=== PATIENT | female | born 1975 | race African-American/Black ===

== ENCOUNTER 2017-02-08 08:35 | Emergency (ER) | payer MEDICAID ==
[2017-02-08] MEDS ORDERED: methylPREDNISolone Sodium Succinate 125 MG/2 ML SDV IM ONE (08:48)
[2017-02-08] MEDS ORDERED: Ketorolac 60 MG/2 ML SDV IM ONE (08:49)
[2017-02-08 08:56] VITALS: BP 148/88
[2017-02-08 09:41] LABS: CHLORIDE,CL 104 mmol/L (98-107); SODIUM,NA 141 mmol/L (136-145)
[2017-02-08] MEDS ORDERED: Iopamidol 612 MG/ML 100 ML Bottle IVPUSH ONE (10:25)
[2017-02-08] MEDS ORDERED: Sodium Chloride 0.9% 100 ML IV ONE (10:25)
--- NOTE | 2017-02-26 07:55 | ER ---
Date of Service: 02/08/2017 SUBJECTIVE: Christine presents to the emergency room with complaints of chest congestion that she has been experiencing for 1 month. The patient states that she has not been experiencing any fever or chills. She denies any recent travel. She states that she is not currently on control. She has not been experiencing any fever or chills. No abdominal pain. No nausea, vomiting, or diarrhea. PAST MEDICAL HISTORY: 1. Hypertension. 2. Tobacco abuse disorder. MEDICATIONS: 1. Hydrochlorothiazide. 2. Haldol. 3. Prozac. ALLERGIES: NKDA. She is allergic to latex, however. REVIEW OF SYSTEMS: General: No fever or chills. HEENT: No sore throat, rhinorrhea, congestion. Respiratory: Positive for mild shortness of breath and chest tightness. Cardiac: Denies any substernal chest pain. No jaw, arm, neck, or back pain. GI: No nausea, vomiting, or diarrhea. No melena, hematochezia, or hematemesis. : Denies any dysuria. PHYSICAL EXAMINATION: General: This is a 41-year-old female patient, in no acute distress. Vital Signs: Blood pressure is 148/88, pulse rate 84, temperature is 35.9, respiratory rate 22, and O2 saturations 99%. Skin: Warm, pink, and dry. HEENT. Head is normocephalic, atraumatic. Eyes, PERRLA. Extraocular movements are intact. Mouth, oral mucosa is moist. No erythema or exudate noted in the hypopharynx. Neck: Supple, without masses. There is no lymphadenopathy. Lungs: Diminished with wheezing. Heart: Regular rate and rhythm. Normal S1, S2. No S3, S4, clicks, or rubs. Abdomen: Soft, nontender. There is no hepatosplenomegaly or masses noted. Extremities: Without edema. LABORATORY DATA: WBCs 3.4, hemoglobin is 11.4, and platelets are 185. PT is 9.9 and INR is 0.9. D-dimer is positive at 0.93. Comprehensive metabolic panel was obtained with the exception of an elevated AST at 87 and ALT at 94 was within normal limits. Troponin is less than 0.017. C-reactive protein is 1.1. Albumin 3.4. PA and lateral chest x-ray was obtained. She did have evidence of some hyperinflation, but no obvious infiltrate. CT angiogram of the patient's chest was obtained. There was no evidence of any pulmonary embolism. ASSESSMENT: Chronic obstructive pulmonary disease exacerbation. PLAN: She has not been diagnosed with COPD, but she has been a heavy smoker for many years. The patient was started on doxycycline 100 mg twice daily for 10 days, was also started on prednisone 40 mg daily for 6 days. I would like her to follow up in the clinic in the next 7 to 10 days sooner if she develops any worsening dyspnea. All questions were answered. MWK: 02/25/2017 22:05:05 MODL: 02/26/2017 01:29:43 /[id number]
== END 2017-02-08 11:49 | disposition home or self-care (01) ==
LOC: VM.ED 08:35
DX: J44.1 Chronic obstructive pulmonary disease with (acute) exacerbation (principal); I10 Essential (primary) hypertension; R79.89 Other specified abnormal findings of blood chemistry; Z72.0 Tobacco use; Z79.899 Other long term (current) drug therapy; Z91.040 Latex allergy status
CPT/HCPCS: 36415; 71020; 71275; 80053; 84484; 85025; 85379; 85610; 86140; 87804; 93005; 96372; 99285; J1885; J2930; J7050; Q9967

== ENCOUNTER 2017-03-26 22:10 | Emergency (ER) | payer MEDICAID ==
[2017-03-26 22:25] VITALS: BP 138/81
[2017-03-26] MEDS ORDERED: Albuterol/Ipratropium 3.0-0.5 MG/3 ML Neb Soln NEB ONE (22:41)
[2017-03-26] MEDS ORDERED: LORazepam 1 MG Tab PO ONE (22:41)
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
== END 2017-03-27 00:04 | disposition home or self-care (01) ==
LOC: VM.ED 22:10
DX: R07.89 Other chest pain (principal); F41.9 Anxiety disorder, unspecified; J44.9 Chronic obstructive pulmonary disease, unspecified; Z91.040 Latex allergy status; I10 Essential (primary) hypertension; F32.9 Major depressive disorder, single episode, unspecified; F17.210 Nicotine dependence, cigarettes, uncomplicated
CPT/HCPCS: 36415; 82550; 82553; 83880; 84484; 85610; 93005; 94640; 99285; A9270

== ENCOUNTER 2018-03-21 08:32 | Emergency (ER) | payer MEDICAID ==
[2018-03-21 08:47] VITALS: BP 153/97
[2018-03-21 09:42] LABS: CHLORIDE,CL 97 mmol/L (98-107); SODIUM,NA 136 mmol/L (136-145)
--- NOTE | 2018-03-21 16:53 | EDM.PDOC ---
ED HPI GENERAL MEDICAL PROBLEM - General Chief Complaint: General Stated Complaint: CHEST TIGHTNESS Time Seen by Provider: 03/21/18 08:56 Source of Information: Reports: Patient History Limitations: Reports: No Limitations - History of Present Illness INITIAL COMMENTS - FREE TEXT/NARRATIVE: Pt. presents to ER with complaints of cough, chest tightness, and cough, productive of brownish colored sputum. States that she has been experiencing these symptoms for weeks. She was seen in the clinic for this but was not started on any medications, as she still smokes cigarettes. She states that she has not been experiencing any fever or chills. No lightheadedness. No shortness of breath. Pt. also complains of vaginal discomfort and malodorous discharge since having unprotected sex several weeks ago. She states that she has had some blood- tinged vaginal discharge as well. She states that it is uncomfortable when she urinates. Location: Reports: Chest, Pelvis Quality: Reports: Burning chest and back Pain Score (Numeric/FACES): 10 - Related Data Allergies Allergy/AdvReac Type Severity Reaction Status Date / Time Latex, Natural Rubber Allergy Unknown Swelling Verified 03/21/18 08:48 No Known Drug Allergies Allergy Other Verified 03/21/18 08:48 Home Meds: Home Meds Verapamil HCl 360 mg PO DAILY 03/26/17 [History] Albuterol [Proventil HFA] 2 puff INH Q4H PRN 03/21/18 [History] Hydrochlorothiazide 25 mg PO DAILY 03/21/18 [History] Past Medical History - Past Health History Medical/Surgical History: Denies Medical/Surgical History Cardiovascular History: Reports: Hypertension Respiratory History: Reports: COPD Psychiatric History: Reports: Depression Social & Family History - Tobacco Use Smoking Status *Q: Current Every Day Smoker Years of Tobacco use: 25 Packs/Tins Daily: 2 Second Hand Smoke Exposure: Yes - Alcohol Use Days Per Week of Alcohol Use: 7 Number of Drinks Per Day: 2 Total Drinks Per Week: 14 - Recreational Drug Use Recreational Drug Use: Yes Drug Use in Last 12 Months: No Recreational Drug Type: Reports: Marijuana/Hashish - Living Situation & Occupation Living situation: Reports: with Significant Other, with Family ED ROS GENERAL - Review of Systems Review Of Systems: See Below Constitutional: Reports: No Symptoms HEENT: Reports: No Symptoms Respiratory: Reports: Shortness of Breath, Cough, Sputum Cardiovascular: Reports: No Symptoms Endocrine: Reports: No Symptoms GI/Abdominal: Reports: No Symptoms : Reports: No Symptoms Musculoskeletal: Reports: No Symptoms Skin: Reports: No Symptoms Neurological: Reports: No Symptoms Psychiatric: Reports: No Symptoms Hematologic/Lymphatic: Reports: No Symptoms Immunologic: Reports: No Symptoms ED EXAM, GENERAL - Physical Exam Exam: See Below Exam Limited By: No Limitations General Appearance: Alert, WD/WN, No Apparent Distress Ears: Normal External Exam, Normal Canal, Hearing Grossly Normal, Normal TMs Ear Exam: Bilateral Ear: Auricle Normal, Canal Normal, TM normal Nose: Normal Inspection, Normal Mucosa, No Blood Throat/Mouth: Normal Inspection, Normal Lips, Normal Teeth, Normal Gums, Normal Oropharynx, Normal Voice, No Airway Compromise Head: Atraumatic, Normocephalic Neck: Normal Inspection, Supple, Non-Tender, Full Range of Motion Respiratory/Chest: No Respiratory Distress, Lungs Clear, Normal Breath Sounds, Respiratory Distress, Crackles Cardiovascular: Normal Peripheral Pulses, Regular Rate, Rhythm, No Edema, No Gallop, No JVD, No Murmur, No Rub Peripheral Pulses: 4+: Radial (L), Radial (R) GI/Abdominal: Normal Bowel Sounds, Soft, Non-Tender, No Organomegaly, No Distention, No Abnormal Bruit, No Mass (Female) Exam: Normal External Exam, Vaginal Bleeding, Vaginal Discharge Rectal (Female) Exam: Normal Exam, Normal Rectal Tone Back Exam: Normal Inspection, Full Range of Motion, NT Extremities: Normal Inspection, Normal Range of Motion, Non-Tender, Normal Capillary Refill, No Pedal Edema Neurological: Alert, Oriented, CN II-XII Intact, Normal Cognition, Normal Gait, Normal Reflexes, No Motor/Sensory Deficits Psychiatric: Normal Affect, Normal Mood Skin Exam: Warm, Dry, Intact, Normal Color, No Rash Lymphatic: No Adenopathy Course - Vital Signs Last Recorded V/S: Last Vital Signs Temp 37.1 C 03/21/18 08:41 Pulse 90 03/21/18 08:41 Resp 18 03/21/18 08:41 BP 153/97 H 03/21/18 08:41 Pulse Ox 96 03/21/18 08:41 - Orders/Labs/Meds Orders: Active Orders 24 hr Category Date Time Status Chest 2V [CR] Stat Exams 04/26/18 09:02 Taken CHLAMYDIA/GC NUCLEIC ACID AMP [MREF] Stat Lab 03/21/18 09:02 Ordered CULTURE GENITAL [RM] Stat Lab 03/21/18 09:15 Received HEPATITIS B SURFACE ANTIGEN [REF] Stat Lab 03/21/18 09:15 Received HEPATITIS C AB [REF] Stat Lab 03/21/18 09:15 Received HIV 1,2 AB/AG COMBO SCREEN [REF] Stat Lab 03/21/18 09:15 Received RPR [REF] Stat Lab 03/21/18 09:15 Received Labs: Laboratory Tests 03/21/18 03/21/18 03/21/18 Range/Units 09:15 09:15 09:15 WBC 3.7 L (4.0-10.0) x10^3/uL RBC 4.16 (4.00-5.50) x10^6/uL Hgb 14.0 D (12.0-16.0) g/dL Hct 39.1 (33.0-47.0) % MCV 94.0 H (78.0-93.0) fL MCH 33.7 H (26.0-32.0) pg MCHC 35.8 (32.0-36.0) g/dL RDW Coeff of Alda 14.4 (10.0-15.0) % Plt Count 269 D (130-400) x10^3/uL Neut % (Auto) 28.1 L (50.0-80.0) % Lymph % (Auto) 59.4 H (25.0-50.0) % Anderson % (Auto) 11.7 H (2.0-11.0) % Eos % (Auto) 0.3 (0.0-4.0) % Baso % (Auto) 0.5 (0.2-1.2) % PT 10.4 (9.8-11.8) SEC INR 1.0 L (2.0-3.5) Sodium 136 (136-145) mmol/L Potassium 3.5 (3.5-5.1) mmol/L Chloride 97 L (98-107) mmol/L Carbon Dioxide 27 (21-32) mmol/L Anion Gap 15.5 (10-20) mmol/L BUN 16 (7-18) mg/dL Creatinine 0.8 (0.55-1.02) mg/dL Est Cr Clr Drug Dosing TNP Estimated GFR (MDRD) > 60 Glucose 85 (74-106) mg/dL Calcium 8.8 (8.5-10.1) mg/dL Corrected Calcium 9.28 (8.5-10.1) mg/dL Total Bilirubin 0.6 (0.2-1.0) mg/dL AST 57 H (15-37) U/L ALT 60 H (14-59) U/L Alkaline Phosphatase 60 (46-116) U/L C-Reactive Protein < 0.2 (<=0.9) mg/dL Total Protein 7.5 (6.4-8.2) g/dL Albumin 3.4 (3.4-5.0) g/dL Globulin 4.1 Albumin/Globulin Ratio 0.83 Departure - Departure Time of Disposition: 11:10 Disposition: Home, Self-Care 01 Condition: Good Clinical Impression: COPD exacerbation, Vaginal discharge, bloody - Discharge Information Instructions: Chronic Obstructive Pulmonary Disease Exacerbation, Vaginitis, Aweo-ce-Fxey Referrals: Dc Rosen MD [Primary Care Provider] - Forms: ED Department Discharge Additional Instructions: Flagyl 500mg three times daily Prednisone 40mg once daily Toradol 10mg every 4-6 hours Azithromycin 250mg 2 tablets today, then 1 tablet daily on days 2-5 Follow-up with your primary care provider in 7-10 days for recheck - My Orders Last 24 Hours: My Active Orders 03/21/18 09:02 Chest 2V [CR] Stat CHLAMYDIA/GC NUCLEIC ACID AMP [MREF] Stat 03/21/18 09:15 CULTURE GENITAL [RM] Stat HEPATITIS B SURFACE ANTIGEN [REF] Stat HEPATITIS C AB [REF] Stat HIV 1,2 AB/AG COMBO SCREEN [REF] Stat RPR [REF] Stat - Assessment/Plan Last 24 Hours: My Active Orders 03/21/18 09:02 Chest 2V [CR] Stat CHLAMYDIA/GC NUCLEIC ACID AMP [MREF] Stat 03/21/18 09:15 CULTURE GENITAL [RM] Stat HEPATITIS B SURFACE ANTIGEN [REF] Stat HEPATITIS C AB [REF] Stat HIV 1,2 AB/AG COMBO SCREEN [REF] Stat RPR [REF] Stat Assessment:: COPD exacerbation Bloody vaginal discharge Plan: GC chlamydia, RPR, hepB, hepC and vaginal cultures obtained and are pending. Will start pt. on azithromycin and prednisone. Will also cover for bacterial vaginal infection with flagyl 500mg twice daily.
== END 2018-03-21 11:10 | disposition home or self-care (01) ==
LOC: VM.ED 08:32
DX: J44.1 Chronic obstructive pulmonary disease with (acute) exacerbation (principal); N89.8 Other specified noninflammatory disorders of vagina; I10 Essential (primary) hypertension; F17.210 Nicotine dependence, cigarettes, uncomplicated; Z91.040 Latex allergy status
CPT/HCPCS: 36415; 71046; 80053; 85025; 85610; 86140; 86592; 86703; 86803; 87070; 87077; 87186; 87340; 99284

== ENCOUNTER 2018-08-31 08:39 | Emergency (ER) | payer MEDICAID ==
[2018-08-31 10:01] VITALS: BP 156/107
--- NOTE | 2018-09-01 18:59 | EDM.PDOC ---
ED HPI GENERAL MEDICAL PROBLEM - General Chief Complaint: General Stated Complaint: SWOLLEN MOUTH Time Seen by Provider: 08/31/18 09:05 Source of Information: Reports: Patient History Limitations: Reports: No Limitations - History of Present Illness INITIAL COMMENTS - FREE TEXT/NARRATIVE: Woke up with swelling and erythema to lips. States that she did have some cold sores to her lips before bed. Denies any fever or chills. No nausea, vomiting, or diarrhea. Lip Pain Score (Numeric/FACES): 8 - Related Data Allergies Allergy/AdvReac Type Severity Reaction Status Date / Time Latex, Natural Rubber Allergy Unknown Swelling Verified 08/31/18 09:09 No Known Drug Allergies Allergy Other Verified 08/31/18 09:09 Home Meds: Home Meds Verapamil HCl 360 mg PO DAILY 03/26/17 [History] Albuterol [Proventil HFA] 2 puff INH Q4H PRN 03/21/18 [History] hydroCHLOROthiazide [Hydrochlorothiazide] 25 mg PO DAILY 03/21/18 [History] Past Medical History - Past Health History Medical/Surgical History: Denies Medical/Surgical History Cardiovascular History: Reports: Hypertension Respiratory History: Reports: COPD Psychiatric History: Reports: Anxiety, Depression Social & Family History - Tobacco Use Smoking Status *Q: Current Every Day Smoker Years of Tobacco use: 26 Packs/Tins Daily: 1 - Alcohol Use Days Per Week of Alcohol Use: 1 Number of Drinks Per Day: 1 Total Drinks Per Week: 1 - Recreational Drug Use Recreational Drug Use: No - Living Situation & Occupation Living situation: Reports: with Significant Other, with Family ED ROS GENERAL - Review of Systems Review Of Systems: ROS reveals no pertinent complaints other than HPI. ED EXAM, GENERAL - Physical Exam Exam: See Below Exam Limited By: No Limitations General Appearance: Alert, WD/WN, No Apparent Distress Nose: Normal Inspection, Normal Mucosa, No Blood Throat/Mouth: Other (severe edema noted to both lips. There is areas of open, crusting lesion primarily to upper lip. ) Respiratory/Chest: No Respiratory Distress, Lungs Clear, Normal Breath Sounds, No Accessory Muscle Use, Chest Non-Tender Cardiovascular: Normal Peripheral Pulses, Regular Rate, Rhythm, No Edema, No Gallop, No JVD, No Murmur, No Rub Course - Vital Signs Last Recorded V/S: Last Vital Signs Temp 36.4 C 08/31/18 08:40 Pulse 94 08/31/18 08:40 Resp 16 08/31/18 08:40 BP 156/107 H 08/31/18 08:40 Pulse Ox 99 08/31/18 08:40 Departure - Departure Time of Disposition: 09:40 Disposition: Home, Self-Care 01 Condition: Good Clinical Impression: Cellulitis and abscess of face, History of cold sores - Discharge Information Instructions: Cellulitis, Adult, Cold Sore, Valacyclovir caplets, Doxycycline tablets or capsules Referrals: Dc Rosen MD [Primary Care Provider] - Forms: ED Department Discharge Additional Instructions: Valtrex 1000mg 2 tabs by mouth twice daily for 2 days. Doxycycline 1oomg twice daily for 10 days. Follow-up in clinic if not gradually improving. - Assessment/Plan Plan: Valtrex 1000mg 2 tabs by mouth twice daily for 2 days. Doxycycline 1oomg twice daily for 10 days. Follow-up in clinic if not gradually improving.
== END 2018-08-31 09:40 | disposition home or self-care (01) ==
LOC: VM.ED 08:39
DX: L03.211 Cellulitis of face (principal); F17.210 Nicotine dependence, cigarettes, uncomplicated; I10 Essential (primary) hypertension; J44.9 Chronic obstructive pulmonary disease, unspecified; F41.9 Anxiety disorder, unspecified; F32.9 Major depressive disorder, single episode, unspecified; Z91.040 Latex allergy status; Z79.899 Other long term (current) drug therapy
CPT/HCPCS: 99283

== ENCOUNTER 2019-03-25 12:09 | Emergency (ER) | payer MEDICAID ==
[2019-03-25] MEDS ORDERED: ALPRAZolam 0.25 MG Tab PO ONE (12:44)
[2019-03-25] MEDS ORDERED: Verapamil 240 MG Tab.ER PO ONE (12:45)
[2019-03-25 13:21] LABS: CHLORIDE,CL 95 mmol/L (98-107); SODIUM,NA 136 mmol/L (136-145)
[2019-03-25 13:22] LABS: ANION GAP 15.5 mmol/L (10-20)
--- NOTE | 2019-03-25 13:22 | EDM.PDOC ---
ED HPI GENERAL MEDICAL PROBLEM - General Chief Complaint: General Stated Complaint: "feels funny" Time Seen by Provider: 03/25/19 12:39 Source of Information: Reports: Patient History Limitations: Reports: No Limitations - History of Present Illness INITIAL COMMENTS - FREE TEXT/NARRATIVE: Patient comes in with complaints of feeling "funny". States this happened right after eating lunch. Describes tingling to her hands and feet, some jittery feelings. Does have history of HTN and sees Dr. Joshua Rosen at the [facility]. Remote history anxiety. States she does not have this anymore. She takes verapamil and hctz for blood pressure control. She denies any recent illness, no fever, chills, headache, no prior history of DE or stroke. She has no nausea, vomiting, abdominal pain. No swelling to her feet. Denies any urinary or bowel complaints. No blood in urine or stool. Medical history includes tubal . No abdominal/pelvic surgeries. Onset: Today, Sudden Onset Date: 03/25/19 Duration: Intermittent Location: Reports: Generalized Severity: Moderate Worsens with: Reports: None Associated Symptoms: Reports: Other (numbness/tingling to feet and hands) - Related Data Allergies Allergy/AdvReac Type Severity Reaction Status Date / Time Latex, Natural Rubber Allergy Unknown Swelling Verified 03/25/19 12:33 No Known Drug Allergies Allergy Other Verified 03/25/19 12:33 Home Meds: Home Meds Verapamil HCl 360 mg PO DAILY 03/26/17 [History] Albuterol [Proventil HFA] 2 puff INH Q4H PRN 03/21/18 [History] hydroCHLOROthiazide [Hydrochlorothiazide] 25 mg PO DAILY 03/21/18 [History] Past Medical History - Past Health History Medical/Surgical History: Denies Medical/Surgical History Cardiovascular History: Reports: Hypertension Respiratory History: Reports: COPD Psychiatric History: Reports: Anxiety, Depression Social & Family History - Tobacco Use Smoking Status *Q: Current Status Unknown - Living Situation & Occupation Living situation: Reports: with Significant Other, with Family ED ROS GENERAL - Review of Systems Review Of Systems: See Below Constitutional: Reports: No Symptoms HEENT: Reports: No Symptoms Respiratory: Reports: No Symptoms Cardiovascular: Reports: No Symptoms Endocrine: Reports: No Symptoms GI/Abdominal: Reports: No Symptoms : Reports: No Symptoms Musculoskeletal: Reports: No Symptoms Skin: Reports: No Symptoms Neurological: Reports: Numbness, Tingling (feet and hands) Psychiatric: Reports: Other (denies anxiety) Hematologic/Lymphatic: Reports: No Symptoms Immunologic: Reports: No Symptoms ED EXAM, GENERAL - Physical Exam Exam: See Below Exam Limited By: No Limitations General Appearance: Alert, WD/WN, No Apparent Distress Eye Exam: Bilateral Eye: EOMI, PERRL Ears: Normal TMs Nose: Normal Inspection, Normal Mucosa, No Blood Throat/Mouth: Normal Inspection, Normal Lips, Normal Teeth, Normal Gums, Normal Oropharynx, Normal Voice, No Airway Compromise Head: Atraumatic, Normocephalic Neck: Normal Inspection, Supple, Non-Tender, Full Range of Motion Respiratory/Chest: No Respiratory Distress, Lungs Clear, Normal Breath Sounds, No Accessory Muscle Use, Chest Non-Tender Cardiovascular: Normal Peripheral Pulses, Regular Rate, Rhythm, No Edema, No Gallop, No JVD, No Murmur, No Rub Peripheral Pulses: 2+: Posterior Tibial (L), Posterior Tibial (R), Dorsalis Pedis (L), Dorsalis Pedis (R) GI/Abdominal: Normal Bowel Sounds, Soft, Non-Tender, No Organomegaly, No Distention, No Abnormal Bruit, No Mass Back Exam: Normal Inspection, Full Range of Motion, NT Extremities: Normal Inspection, Normal Range of Motion, Non-Tender, Normal Capillary Refill, No Pedal Edema Neurological: Alert, Oriented, CN II-XII Intact, Normal Cognition, Normal Gait, Normal Reflexes, No Motor/Sensory Deficits Psychiatric: Normal Affect, Normal Mood Skin Exam: Warm, Dry, Intact, Normal Color, No Rash Lymphatic: No Adenopathy Course - Vital Signs Last Recorded V/S: Last Vital Signs Temp 36.5 C 03/25/19 12:12 Pulse 104 H 03/25/19 12:12 Resp 16 03/25/19 12:12 BP 158/95 H 03/25/19 12:12 Pulse Ox 100 03/25/19 12:12 - Orders/Labs/Meds Orders: Active Orders 24 hr Category Date Time Status COMPREHENSIVE METABOLIC PN,CMP [CHEM] Stat Lab 03/25/19 12:41 Ordered INR,PT,PROTHROMBIN TIME [COAG] Stat Lab 03/25/19 12:41 Ordered TROPONIN I [CHEM] Stat Lab 03/25/19 12:41 Ordered Labs: Laboratory Tests 03/25/19 Range/Units 12:50 WBC 5.9 (4.0-10.0) x10^3/uL RBC 3.93 L (4.00-5.50) x10^6/uL Hgb 12.6 (12.0-16.0) g/dL Hct 36.6 (33.0-47.0) % MCV 93.1 H D (78.0-93.0) fL MCH 32.1 H (26.0-32.0) pg MCHC 34.4 (32.0-36.0) g/dL RDW Coeff of Alda 13.4 (10.0-15.0) % Plt Count 315 (130-400) x10^3/uL Neut % (Auto) 32.8 L (50.0-80.0) % Lymph % (Auto) 60.5 H (25.0-50.0) % [place] % (Auto) 6.3 (2.0-11.0) % Eos % (Auto) 0.2 (0.0-4.0) % Baso % (Auto) 0.2 (0.2-1.2) % Meds: Medications Discontinued Medications Generic Name Dose Route Start Last Admin Trade Name Freq PRN Reason Stop Dose Admin Alprazolam 0.25 mg 03/25/19 12:44 Xanax PO 03/25/19 12:45 NOW ONE Verapamil HCl 240 mg 03/25/19 12:45 03/25/19 13:00 Calan Sr PO 03/25/19 12:46 240 mg ONETIME ONE Administration - Radiology Interpretation Free Text/Narrative:: ct head negative for acute process Departure - Departure Time of Disposition: 14:30 Disposition: Home, Self-Care 01 Condition: Good Clinical Impression: Anxiety - Discharge Information *PRESCRIPTION DRUG MONITORING PROGRAM REVIEWED*: Not Applicable *COPY OF PRESCRIPTION DRUG MONITORING REPORT IN PATIENT SRINIVAS: Not Applicable Instructions: Generalized Anxiety Disorder, Adult, Panic Attack, [id number], Preventing Hypertension, Hypertension, [id number] Referrals: Dc Rosen MD [Primary Care Provider] - Additional Instructions: Plan 1. Follow up with your primary doctor as needed as you may need additional medication for your blood pressure 2. Your labs today are all negative for any infectious or cardiac reasons for your symptoms 3. Your symptoms largely resemble those present with anxiety/panic attacks. Some of these can also be present with high blood pressure so it is important to follow up with Dr. Rosen. 4. Please call us if you have any questions or concerns. - My Orders Last 24 Hours: My Active Orders 03/25/19 12:41 COMPREHENSIVE METABOLIC PN,CMP [CHEM] Stat INR,PT,PROTHROMBIN TIME [COAG] Stat TROPONIN I [CHEM] Stat - Assessment/Plan Last 24 Hours: My Active Orders 03/25/19 12:41 COMPREHENSIVE METABOLIC PN,CMP [CHEM] Stat INR,PT,PROTHROMBIN TIME [COAG] Stat TROPONIN I [CHEM] Stat
--- NOTE | 2019-03-25 14:18 | CT ---
[id number] CT/CT Head WO IV EXAM: NONCONTRAST HEAD CT INDICATION: SHAKING. COMPARISON: None. DISCUSSION: The ventricles and sulci are normal in size and configuration. The pruett and white matter are normal in attenuation. No mass effect or midline shift. No acute hemorrhage or extra-axial fluid collection. No acute territorial infarct is identified. A limited look at the orbits and paranasal sinuses is unremarkable. IMPRESSION: 1. Negative exam. Elier Taveras MD 03/25/19 1096 Thank you for allowing us to participate in the care of your patient.
[2019-03-25 15:05] VITALS: BP 151/85
== END 2019-03-25 14:28 | disposition home or self-care (01) ==
LOC: VM.ED 12:09
DX: F41.9 Anxiety disorder, unspecified (principal); F32.9 Major depressive disorder, single episode, unspecified; I10 Essential (primary) hypertension; J44.9 Chronic obstructive pulmonary disease, unspecified; Z91.040 Latex allergy status; Z79.899 Other long term (current) drug therapy
CPT/HCPCS: 36415; 70450; 80053; 80305; 81001; 82175; 82300; 82570; 82607; 83540; 83550; 83655; 83825; 84207; 84252; 84443; 84484; 85025; 85610; 93005; 99284; A9270; 99283-GF

== ENCOUNTER 2019-07-13 03:05 | Emergency (ER) | payer OTHER ==
--- NOTE | 2019-07-13 03:25 | EDM.PDOC ---
ED HPI GENERAL MEDICAL PROBLEM - General Chief Complaint: Respiratory Problem Stated Complaint: Chest/Back Pain, Cough, Dyspnea Time Seen by Provider: 07/13/19 03:25 Source of Information: Reports: Patient, Old Records History Limitations: Reports: No Limitations, Physical Impairment - History of Present Illness INITIAL COMMENTS - FREE TEXT/NARRATIVE: PT ARRIVES BY AMBULANCE WITH C/O CHEST PAIN, DIFFICULTY BREATHING. SHE HAS A NEW SCRIPT FOR ZITHROMAX DATED 07-08-19 AND REPORTS THIS IS FOR COUGHING UP BLACK MATERIAL FROM HER THROAT. She is moaning in pain and writhing on the table at times. She c/o pain and then states "I always have pain but this is different". She can't pinpoint pain precisely. Denies vomiting, nausea, diaphoresis. She has not noted fever or chills. No URI sx recently. Some pain abdominal area. Has found nothing that improves the pain. Breathing worsens it. Onset: Gradual Onset Date: 07/09/19 Duration: Getting Worse Location: Reports: Chest, Abdomen, Back Quality: Reports: Stabbing Severity: Severe Improves with: Reports: None Worsens with: Reports: Breathing, Movement Context: Reports: Activity Associated Symptoms: Reports: Chest Pain, Malaise, Shortness of Breath mid sternal chest/upper back Pain Score (Numeric/FACES): 6 - Related Data Allergies Allergy/AdvReac Type Severity Reaction Status Date / Time Latex, Natural Rubber Allergy Unknown Swelling Verified 03/25/19 12:33 No Known Drug Allergies Allergy Other Verified 03/25/19 12:33 Home Meds: Home Meds Verapamil HCl 360 mg PO DAILY 03/26/17 [History] Albuterol [Proventil HFA] 2 puff INH Q4H PRN 03/21/18 [History] hydroCHLOROthiazide [Hydrochlorothiazide] 25 mg PO DAILY 03/21/18 [History] Past Medical History - Past Health History Medical/Surgical History: Denies Medical/Surgical History Cardiovascular History: Reports: Hypertension Respiratory History: Reports: Asthma, COPD Psychiatric History: Reports: Anxiety, Depression Social & Family History - Living Situation & Occupation Living situation: Reports: with Significant Other, with Family ED ROS GENERAL - Review of Systems Review Of Systems: See Below Constitutional: Reports: Weakness, Fatigue HEENT: Reports: No Symptoms Respiratory: Reports: Shortness of Breath, Pleuritic Chest Pain Cardiovascular: Reports: Chest Pain, Dyspnea on Exertion, Lightheadedness Endocrine: Reports: Fatigue GI/Abdominal: Reports: Abdominal Pain, Decreased Appetite : Reports: No Symptoms Musculoskeletal: Reports: Muscle Pain Skin: Reports: No Symptoms Neurological: Reports: No Symptoms Psychiatric: Reports: Anxiety Hematologic/Lymphatic: Reports: No Symptoms Immunologic: Reports: No Symptoms ED EXAM, GENERAL - Physical Exam Exam: See Below Exam Limited By: Respiratory Distress General Appearance: Anxious, Severe Distress Eye Exam: Bilateral Eye: EOMI, PERRL Ears: Normal External Exam Ear Exam: Bilateral Ear: TM normal Nose: Normal Inspection Throat/Mouth: Normal Inspection Head: Atraumatic, Normocephalic Neck: Supple Respiratory/Chest: Decreased Breath Sounds, Wheezing, Other (She c/o pain to palpation of back/chest/abdomen. She is difficult to evaluate as she is writhing around table.) Cardiovascular: Regular Rate, Rhythm, No Edema GI/Abdominal: Guarding, Tender (tender in epigastric area) Back Exam: Normal Inspection, Full Range of Motion Extremities: Normal Inspection Neurological: Alert, Oriented, Inattentive, Slow to Respond Psychiatric: Anxious Skin Exam: Warm, Dry, Intact Lymphatic: No Adenopathy Course - Vital Signs Last Recorded V/S: Last Vital Signs Temp 97.9 F 07/13/19 03:05 Pulse 90 07/13/19 05:45 Resp 16 07/13/19 05:45 BP 135/84 07/13/19 05:45 Pulse Ox 100 07/13/19 05:45 - Orders/Labs/Meds Labs: Laboratory Tests 07/13/19 07/13/19 07/13/19 Range/Units 04:33 04:33 04:33 WBC 7.1 (4.0-10.0) x10^3/uL RBC 4.20 (4.00-5.50) x10^6/uL Hgb 13.2 (12.0-16.0) g/dL Hct 36.4 (33.0-47.0) % MCV 86.7 D (78.0-93.0) fL MCH 31.4 (26.0-32.0) pg MCHC 36.3 H (32.0-36.0) g/dL RDW Coeff of Alda 12.6 (10.0-15.0) % Plt Count 250 (130-400) x10^3/uL Neut % (Auto) 68.6 (50.0-80.0) % Lymph % (Auto) 24.5 L (25.0-50.0) % [place] % (Auto) 6.8 (2.0-11.0) % Eos % (Auto) 0.0 (0.0-4.0) % Baso % (Auto) 0.1 L (0.2-1.2) % D-Dimer, Quantitative 0.95 H (<=0.58) mg/LFEU Sodium 133 L (136-145) mmol/L Potassium 3.5 (3.5-5.1) mmol/L Chloride 92 L (98-107) mmol/L Carbon Dioxide 14 L D (21-32) mmol/L Anion Gap 30.5 H (10-20) mmol/L BUN 17 (7-18) mg/dL Creatinine 0.7 (0.55-1.02) mg/dL Est Cr Clr Drug Dosing TNP Estimated GFR (MDRD) > 60 Glucose 86 (74-106) mg/dL Calcium 8.9 (8.5-10.1) mg/dL Corrected Calcium 8.98 (8.5-10.1) mg/dL Total Bilirubin 0.6 (0.2-1.0) mg/dL AST 46 H (15-37) U/L ALT 36 (14-59) U/L Alkaline Phosphatase 69 (46-116) U/L Troponin I < 0.017 (<=0.056) ng/mL Total Protein 7.6 (6.4-8.2) g/dL Albumin 3.9 (3.4-5.0) g/dL Globulin 3.7 Albumin/Globulin Ratio 1.05 Lipase 64 L (73-393) U/L Urine Opiates Screen (NEGATIVE) Ur Buprenorphine Scrn (NEGATIVE) Ur Oxycodone Screen (NEGATIVE) Ur EDDP (Meth Metab) (NEGATIVE) Urine Methadone Screen (NEGATIVE) Ur Barbituates Screen (NEGATIVE) Ur Tricyclics Screen (NEGATIVE) Ur Phencyclidine Scrn (NEGATIVE) Ur Amphetamines Screen (NEGATIVE) U Methamphetamines Scrn (NEGATIVE) Urine MDMA Screen (NEGATIVE) U Benzodiazepines Scrn (NEGATIVE) Urine Cocaine Screen (NEGATIVE) U Marijuana (THC) Screen (NEGATIVE) 07/13/19 Range/Units 05:44 WBC (4.0-10.0) x10^3/uL RBC (4.00-5.50) x10^6/uL Hgb (12.0-16.0) g/dL Hct (33.0-47.0) % MCV (78.0-93.0) fL MCH (26.0-32.0) pg MCHC (32.0-36.0) g/dL RDW Coeff of Alda (10.0-15.0) % Plt Count (130-400) x10^3/uL Neut % (Auto) (50.0-80.0) % Lymph % (Auto) (25.0-50.0) % [place] % (Auto) (2.0-11.0) % Eos % (Auto) (0.0-4.0) % Baso % (Auto) (0.2-1.2) % D-Dimer, Quantitative (<=0.58) mg/LFEU Sodium (136-145) mmol/L Potassium (3.5-5.1) mmol/L Chloride (98-107) mmol/L Carbon Dioxide (21-32) mmol/L Anion Gap (10-20) mmol/L BUN (7-18) mg/dL Creatinine (0.55-1.02) mg/dL Est Cr Clr Drug Dosing Estimated GFR (MDRD) Glucose (74-106) mg/dL Calcium (8.5-10.1) mg/dL Corrected Calcium (8.5-10.1) mg/dL Total Bilirubin (0.2-1.0) mg/dL AST (15-37) U/L ALT (14-59) U/L Alkaline Phosphatase (46-116) U/L Troponin I (<=0.056) ng/mL Total Protein (6.4-8.2) g/dL Albumin (3.4-5.0) g/dL Globulin Albumin/Globulin Ratio Lipase (73-393) U/L Urine Opiates Screen Negative (NEGATIVE) Ur Buprenorphine Scrn Negative (NEGATIVE) Ur Oxycodone Screen Negative (NEGATIVE) Ur EDDP (Meth Metab) Negative (NEGATIVE) Urine Methadone Screen Negative (NEGATIVE) Ur Barbituates Screen Negative (NEGATIVE) Ur Tricyclics Screen Negative (NEGATIVE) Ur Phencyclidine Scrn Negative (NEGATIVE) Ur Amphetamines Screen Negative (NEGATIVE) U Methamphetamines Scrn Negative (NEGATIVE) Urine MDMA Screen Negative (NEGATIVE) U Benzodiazepines Scrn Negative (NEGATIVE) Urine Cocaine Screen Negative (NEGATIVE) U Marijuana (THC) Screen Negative (NEGATIVE) Meds: Medications Discontinued Medications Generic Name Dose Route Start Last Admin Trade Name Freq PRN Reason Stop Dose Admin Al Hydroxide/Mg Hydroxide 30 ml 07/13/19 03:36 07/13/19 04:02 Gi Cocktail PO 07/13/19 03:37 30 ml ONETIME ONE Administration Albuterol 1 packet 07/13/19 05:41 07/13/19 07:25 Take Home: Albuterol 6.7 Gm, 1 Inh Pack INH 1 packet Q4H PRN Administration Shortness of Breath Iopamidol 100 ml 07/13/19 06:00 07/13/19 06:14 Isovue-300 (61%) IVPUSH 07/13/19 06:01 100 ml ONETIME ONE Administration Morphine Sulfate 4 mg 07/13/19 04:11 07/13/19 04:20 Morphine IVPUSH 07/13/19 04:12 4 mg ONETIME ONE Administration Departure - Departure Time of Disposition: 05:35 Disposition: Home, Self-Care 01 Condition: Fair Clinical Impression: Anxiety, Backache, COPD exacerbation, Chest pain in adult - Discharge Information *PRESCRIPTION DRUG MONITORING PROGRAM REVIEWED*: Not Applicable *COPY OF PRESCRIPTION DRUG MONITORING REPORT IN PATIENT SRINIVAS: Not Applicable Instructions: Steps to Quit Smoking, [id number], Shortness of Breath, Adult, [id number] Referrals: PCP,Unknown [Ordering Only Provider] - Forms: ED Department Discharge Additional Instructions: 1. Drink adequate fluids 2. Take all medications until they are completed even if you feel better 3. Call if any questions 4. Follow up with PCP if symptoms have not improved. - Problem List & Annotations (1) COPD exacerbation SNOMED Code(s): 136138838, 305621199 Code(s): J44.1 - CHRONIC OBSTRUCTIVE PULMONARY DISEASE W (ACUTE) EXACERBATION Status: Acute - Problem List Review Problem List Initiated/Reviewed/Updated: Yes - My Orders Last 24 Hours: She is given GI cocktail without significant relief. Cardiac workup negative. EKG, labs including troponin Pain has been present for more than [address] scan obtained due to positive D-Dimer Negative for PE Patient had relief of her pain with Morphin 4 mg IV She rested and was discharged to care of niece and left in hemodynamically stable condition - Assessment/Plan Assessment:: Shortness of breath Chest pain, non-cardiac Nicotine Abuse COPD exacerbation Plan: She is given Nebulizer treatment which did relieve some of her symptoms. Labs were obtained including CBC, D-Dimer due to sudden onset of chest pain and dyspnea, CMP, Lipase. UDS due to tachycardia which was negative except for tricyclics which she denies use of. CXR unremarkable EKG with no acute ischemia CTA obtained due to positive D-Dimer which was negative for PI GI cocktail given without significant relief. She was given Morphine 4 mg and did have relief of her symptoms eventually. She improved and wanted to go home to rest so she could work later today.
[2019-07-13] MEDS ORDERED: GI Cocktail Oral Solution 30 ML PO ONE (03:36)
[2019-07-13] MEDS ORDERED: Morphine 4 MG/ML Syringe IVPUSH ONE (04:11)
[2019-07-13 05:12] LABS: ANION GAP 30.5 mmol/L (10-20); CHLORIDE,CL 92 mmol/L (98-107); SODIUM,NA 133 mmol/L (136-145)
[2019-07-13] MEDS ORDERED: Take Home: Albuterol 6.7 GM Inhaler, 1 Inhaler Pack INH PRN (05:41)
[2019-07-13 05:54] LABS: BUPRENORPHINE,URINE NEGATIVE (NEGATIVE); MARIJUANA,URINE NEGATIVE (NEGATIVE); METHYLENEDIOXYMETHAMP,UR NEGATIVE (NEGATIVE); PHENCYCLIDINE,URINE NEGATIVE (NEGATIVE)
[2019-07-13] MEDS ORDERED: Iopamidol 612 MG/ML 100 ML Bottle IVPUSH ONE (06:00)
--- NOTE | 2019-07-13 08:45 | CR ---
[id number] RAD/RAD Chest PA And Lateral EXAM: RAD Chest PA And Lateral CLINICAL DATA: CHEST PAIN COMPARISON: CORRELATION IS MADE WITH THE EXAM OF JUNE 24, 2018. FINDINGS: The lungs are clear. The cardiomediastinal contour is normal. The regional bones and soft tissues are unremarkable. IMPRESSION: NO ACUTE PROCESS. Mervin Villanueva MD 07/13/19 0844 Thank you for allowing us to participate in the care of your patient.
--- NOTE | 2019-07-13 09:06 | CT ---
[id number] CT/CTA Chest Exam: CTA Chest Clinical Data: CHEST PAIN. SHORTNESS OF BREATH. ELEVATED D-DIMER COMPARISON: CORRELATION IS MADE WITH THE EXAM OF FEBRUARY 08, 2017. FINDINGS: There is no pulmonary embolus. The great vessels are intact. There is no mediastinal mass or adenopathy. The lungs are clear. There is a fatty liver. IMPRESSION: NO PULMONARY EMBOLUS. Mervin Villanueva MD 07/13/19 0904 Thank you for allowing us to participate in the care of your patient.
[2019-07-13 09:21] VITALS: BP 135/84; PULSE 90
== END 2019-07-13 07:25 | disposition home or self-care (01) ==
LOC: VM.ED 03:05
DX: J44.1 Chronic obstructive pulmonary disease with (acute) exacerbation (principal); R07.89 Other chest pain; F41.9 Anxiety disorder, unspecified; M54.9 Dorsalgia, unspecified; I10 Essential (primary) hypertension; F17.200 Nicotine dependence, unspecified, uncomplicated; Z91.040 Latex allergy status; Z79.899 Other long term (current) drug therapy
CPT/HCPCS: 36415; 71046; 71275; 80053; 80305; 83690; 84484; 85025; 85379; 93005; 96374; 99285; A9270; J2270; Q9967; 99284-GF

== ENCOUNTER 2020-04-17 17:47 | Emergency (ER) | payer BC ==
[2020-04-17] MEDS ORDERED: Sodium Chloride 0.9% 10 ML Syringe FLUSH PRN (18:19)
[2020-04-17] MEDS: methylPREDNISolone Sodium Succinate 125 MG/2 ML SDV IV ONE (18:36)
[2020-04-17] MEDS: Albuterol/Ipratropium 3.0-0.5 MG/3 ML Neb Soln NEB ONE (18:36)
--- NOTE | 2020-04-17 18:43 | EDM.PDOC ---
ED HPI GENERAL MEDICAL PROBLEM - General Chief Complaint: Gastrointestinal Problem Stated Complaint: STOMACH PAIN Time Seen by Provider: 04/17/20 18:02 Source of Information: Reports: Patient, RN History Limitations: Reports: No Limitations - History of Present Illness INITIAL COMMENTS - FREE TEXT/NARRATIVE: Pt. presents to ER with numerous complaints. Her primary complaint today is of shortness of breath, cough productive of yellowish sputum, and chest tightness. Pt. has a history of COPD and states that the symptoms are similar to when she has had exacerbations in the past. Pt. states that she stopped smoking and drinking several days ago. She states that she used to smoke at least a pack of cigarettes a day, and drank a 6 pack of beer most days of the weeks. She states that she does not have symptoms if she stops drinking. She also is concerned that she may be , as shes has been having unprotected sex and is having some discomfort in her lower abdomen. Denies any vaginal discharge. No bleeding. Denies any fever or chills, but states that she has not been checking her temp. She complains of some chest tightness, lightheadedness, and palpitations as well. She has a history of hypertension, but has been off of her amlodipine and hydrochlorothiazide. She states that her BP has been elevated at home (180 systolic range) Pt. also complains of sore throat that she has been experiencing for several days as well. No rashes. Denies any sick contacts. Denies any close contact with covid 19 patients or with people who have travelled recently. She has not been leaving her home. Onset Date: 04/12/20 Location: Reports: Neck, Chest, Abdomen, Generalized Quality: Reports: Burning Severity: Moderate Associated Symptoms: Reports: Chest Pain, Cough, cough w sputum, Shortness of Breath. Denies: Diaphoresis, Headaches, Nausea/Vomiting, Rash Lower Abdomen Pain Score (Numeric/FACES): 10 - Related Data Allergies Allergy/AdvReac Type Severity Reaction Status Date / Time Latex, Natural Rubber Allergy Unknown Swelling Verified 03/25/19 12:33 No Known Drug Allergies Allergy Other Verified 03/25/19 12:33 Home Meds: Home Meds amLODIPine Besylate [Amlodipine Besylate] 10 mg PO DAILY 04/17/20 [History] hydroCHLOROthiazide [Hydrochlorothiazide] 25 mg PO DAILY 04/17/20 [History] Past Medical History - Past Health History Medical/Surgical History: Denies Medical/Surgical History Cardiovascular History: Reports: Hypertension Respiratory History: Reports: Asthma, COPD Psychiatric History: Reports: Anxiety, Depression Social & Family History - Living Situation & Occupation Living situation: Reports: with Significant Other, with Family ED ROS GENERAL - Review of Systems Review Of Systems: See Below Constitutional: Reports: No Symptoms HEENT: Reports: Throat Pain, Throat Swelling Respiratory: Reports: Shortness of Breath, Wheezing, Cough, Sputum Cardiovascular: Reports: Chest Pain, Blood Pressure Problem, Dyspnea on Exertion Endocrine: Reports: No Symptoms GI/Abdominal: Reports: Abdominal Pain : Reports: Pain, Other (see HPI) Musculoskeletal: Reports: No Symptoms Skin: Reports: No Symptoms Neurological: Reports: No Symptoms Psychiatric: Reports: No Symptoms Hematologic/Lymphatic: Reports: No Symptoms Immunologic: Reports: No Symptoms ED EXAM, GENERAL - Physical Exam Exam: See Below Exam Limited By: No Limitations General Appearance: Alert, WD/WN, No Apparent Distress Eye Exam: Bilateral Eye: EOMI, Normal Fundi, Normal Inspection, PERRL Throat/Mouth: Normal Inspection, Normal Lips, Normal Teeth, Normal Gums, Normal Oropharynx, Normal Voice, No Airway Compromise Head: Atraumatic, Normocephalic Neck: Normal Inspection, Supple, Non-Tender, Full Range of Motion Respiratory/Chest: No Respiratory Distress, No Accessory Muscle Use, Decreased Breath Sounds, Wheezing Cardiovascular: Normal Peripheral Pulses, Regular Rate, Rhythm, No Edema, No JVD , No Murmur, No Rub Peripheral Pulses: 4+: Radial (L) GI/Abdominal: Soft, Non-Tender, No Organomegaly, No Distention, No Mass (Female) Exam: Deferred Rectal (Female) Exam: Deferred Back Exam: Normal Inspection, Full Range of Motion Extremities: Normal Inspection, Normal Range of Motion, Non-Tender, No Pedal Edema, Normal Capillary Refill Neurological: Alert, Oriented, CN II-XII Intact, Normal Cognition, Normal Gait, Normal Reflexes, No Motor/Sensory Deficits Psychiatric: Normal Affect, Normal Mood Skin Exam: Warm, Dry, Intact, Normal Color Lymphatic: No Adenopathy EKG INTERPRETATION Rhythm: NSR [place]: Normal P-Wave: Present QRS: Normal ST-T: Normal QT: Normal Course - Vital Signs Last Recorded V/S: Last Vital Signs Temp 37.1 C 05/23/20 18:00 Pulse 87 04/17/20 19:27 Resp 14 04/17/20 19:27 BP 158/95 H 04/17/20 19:39 Pulse Ox 100 04/17/20 19:27 - Orders/Labs/Meds Orders: Active Orders 24 hr Category Date Time Status EKG Documentation Completion [RC] STAT Care 04/17/20 18:17 Active RT Aerosol Therapy [RC] ASDIRECTED Care 04/17/20 18:19 Active CULTURE STREP A CONFIRMATION [] Stat Lab 04/17/20 18:20 Results STREP SCRN A RAPID W CULT CONF [] Stat Lab 04/17/20 18:20 Results Peripheral IV Insertion Adult [OM.PC] Routine Oth 04/17/20 18:19 Ordered Labs: Laboratory Tests 04/17/20 04/17/20 04/17/20 Range/Units 18:18 18:18 18:30 WBC (4.0-10.0) x10^3/uL RBC (4.00-5.50) x10^6/uL Hgb (12.0-16.0) g/dL Hct (33.0-47.0) % MCV (78.0-93.0) fL MCH (26.0-32.0) pg MCHC (32.0-36.0) g/dL RDW Coeff of [place] (10.0-15.0) % Plt Count (130-400) x10^3/uL Neut % (Auto) (50.0-80.0) % Lymph % (Auto) (25.0-50.0) % [place] % (Auto) (2.0-11.0) % Eos % (Auto) (0.0-4.0) % Baso % (Auto) (0.2-1.2) % PT (9.5-12.3) SEC INR (2.0-3.5) Sodium (136-145) mmol/L Potassium (3.5-5.1) mmol/L Chloride (98-107) mmol/L Carbon Dioxide (21-32) mmol/L Anion Gap (10-20) mmol/L BUN (7-18) mg/dL Creatinine (0.55-1.02) mg/dL Est Cr Clr Drug Dosing mL/min Estimated GFR (MDRD) Glucose (74-106) mg/dL Calcium (8.5-10.1) mg/dL Corrected Calcium (8.5-10.1) mg/dL Magnesium (1.8-2.4) mg/dL Total Bilirubin (0.2-1.0) mg/dL AST (15-37) U/L ALT (14-59) U/L Alkaline Phosphatase (46-116) U/L Troponin I (<=0.056) ng/mL C-Reactive Protein (<=0.9) mg/dL Total Protein (6.4-8.2) g/dL Albumin (3.4-5.0) g/dL Globulin Albumin/Globulin Ratio Urine Color Yellow (YELLOW) Urine Appearance Clear (CLEAR) Urine pH 5.5 (5.0-8.0) Ur Specific [place] 1.010 Urine Protein Negative (NEGATIVE) mg/dL Urine Glucose (UA) Negative (NEGATIVE) mg/dL Urine Ketones 15 H (NEGATIVE) mg/dL Urine Occult Blood Negative (NEGATIVE) Urine Nitrite Negative (NEGATIVE) Urine Bilirubin Negative (NEGATIVE) Urine Urobilinogen 0.2 (0.2) EU/dL Ur Leukocyte Esterase Negative (NEGATIVE) Urine HCG, Qual Negative (NEGATIVE) SARS-CoV-2 RNA (RT-PCR) Negative (NEGATIVE) 04/17/20 04/17/20 04/17/20 Range/Units 18:34 18:34 18:34 WBC 5.9 (4.0-10.0) x10^3/uL RBC 4.04 (4.00-5.50) x10^6/uL Hgb 12.6 (12.0-16.0) g/dL Hct 35.3 (33.0-47.0) % MCV 87.4 (78.0-93.0) fL MCH 31.2 (26.0-32.0) pg MCHC 35.7 (32.0-36.0) g/dL RDW Coeff of [place] 14.2 (10.0-15.0) % Plt Count 272 (130-400) x10^3/uL Neut % (Auto) 47.8 L (50.0-80.0) % Lymph % (Auto) 41.3 (25.0-50.0) % [place] % (Auto) 10.4 (2.0-11.0) % Eos % (Auto) 0.3 (0.0-4.0) % Baso % (Auto) 0.2 (0.2-1.2) % PT 9.6 (9.5-12.3) SEC INR 0.9 L (2.0-3.5) Sodium 138 (136-145) mmol/L Potassium 3.4 L (3.5-5.1) mmol/L Chloride 97 L (98-107) mmol/L Carbon Dioxide 25 D (21-32) mmol/L Anion Gap 19.4 (10-20) mmol/L BUN 10 (7-18) mg/dL Creatinine 0.8 (0.55-1.02) mg/dL Est Cr Clr Drug Dosing 73.46 mL/min Estimated GFR (MDRD) > 60 Glucose 93 (74-106) mg/dL Calcium 9.0 (8.5-10.1) mg/dL Corrected Calcium 9.08 (8.5-10.1) mg/dL Magnesium 1.3 L (1.8-2.4) mg/dL Total Bilirubin 0.8 (0.2-1.0) mg/dL AST 23 (15-37) U/L ALT 34 (14-59) U/L Alkaline Phosphatase 74 (46-116) U/L Troponin I < 0.017 (<=0.056) ng/mL C-Reactive Protein < 0.2 (<=0.9) mg/dL Total Protein 7.9 (6.4-8.2) g/dL Albumin 3.9 (3.4-5.0) g/dL Globulin 4.0 Albumin/Globulin Ratio 0.98 Urine Color (YELLOW) Urine Appearance (CLEAR) Urine pH (5.0-8.0) Ur Specific [place] Urine Protein (NEGATIVE) mg/dL Urine Glucose (UA) (NEGATIVE) mg/dL Urine Ketones (NEGATIVE) mg/dL Urine Occult Blood (NEGATIVE) Urine Nitrite (NEGATIVE) Urine Bilirubin (NEGATIVE) Urine Urobilinogen (0.2) EU/dL Ur Leukocyte Esterase (NEGATIVE) Urine HCG, Qual (NEGATIVE) SARS-CoV-2 RNA (RT-PCR) (NEGATIVE) Meds: Medications Discontinued Medications Generic Name Dose Route Start Last Admin Trade Name Freq PRN Reason Stop Dose Admin Albuterol 1 packet 04/17/20 19:23 04/17/20 19:33 Take Home: Albuterol 18 Gm, 1 Inh Pack INH 1 inhaler Q4H PRN Administration Shortness of Breath Albuterol/Ipratropium 3 ml 04/17/20 18:19 04/17/20 18:36 Duoneb 3.0-0.5 Mg/3 Ml NEB 04/17/20 18:20 3 ml ONETIME ONE Administration Amlodipine Besylate 10 mg 04/17/20 20:00 04/17/20 19:39 Norvasc PO 10 mg BEDTIME HILDA Administration Doxycycline Monohydrate 2 packet 04/17/20 19:26 04/17/20 19:33 Take Home: Doxycycline 100 Mg, 4 Tab Pack PO 04/17/20 19:27 2 packet ONETIME ONE Administration Methylprednisolone Sodium Succinate 125 mg 04/17/20 18:18 04/17/20 18:36 Solu-Medrol IV 04/17/20 18:19 125 mg ONETIME ONE Administration Prednisone 2 packet 04/17/20 19:24 04/17/20 19:33 Take Home: Prednisone 20 Mg, 2 Tab Pack PO 04/17/20 19:25 2 packet ONETIME ONE Administration Sodium Chloride 10 ml 04/17/20 18:19 Saline Flush FLUSH ASDIRECTED PRN Keep Vein Open - Radiology Interpretation Free Text/Narrative:: negative chest x-ray Departure - Departure Time of Disposition: 19:53 Disposition: Home, Self-Care 01 Clinical Impression: COPD exacerbation, Hypertension - Discharge Information Instructions: Chronic Obstructive Pulmonary Disease Exacerbation, Doxycycline tablets or capsules, Hypertension, Adult, [id number], Prednisone tablets, Albuterol inhalation solution, Probiotics Referrals: PCP,None [Primary Care Provider] - Forms: ED Department Discharge Additional Instructions: Doxycycline 100mg 1 tab twice daily for 10 days Prednisone 20mg 2 tabs every day until gone Albuterol inhaler 2 puffs every 4-6 hours as needed for cough Amlodipine 10mg 1 tab daily for high blood pressure Recheck in clinic in 7-10 days. Sepsis Event Note - Evaluation Sepsis Screening Result: No Definite Risk - Focused Exam Vital Signs: Vital Signs Temp Pulse Resp BP BP Pulse Ox 04/17/20 19:39 158/95 H 04/17/20 19:27 87 14 158/95 H 100 04/17/20 18:40 86 16 137/101 H 99 04/17/20 18:10 82 152/97 H 04/17/20 18:00 37.1 C 92 20 192/106 H 98 Date Exam was Performed: 04/18/20 Time Exam was Performed: 01:14 - My Orders Last 24 Hours: My Active Orders 04/17/20 18:17 EKG Documentation Completion [RC] STAT 04/17/20 18:19 RT Aerosol Therapy [RC] ASDIRECTED Peripheral IV Insertion Adult [OM.PC] Routine 04/17/20 18:20 CULTURE STREP A CONFIRMATION [RM] Stat STREP SCRN A RAPID W CULT CONF [] Stat - Assessment/Plan Last 24 Hours: My Active Orders 04/17/20 18:17 EKG Documentation Completion [RC] STAT 04/17/20 18:19 RT Aerosol Therapy [RC] ASDIRECTED Peripheral IV Insertion Adult [OM.PC] Routine 04/17/20 18:20 CULTURE STREP A CONFIRMATION [RM] Stat STREP SCRN A RAPID W CULT CONF [RM] Stat Plan: Doxycycline 100mg 1 tab twice daily for 10 days Prednisone 20mg 2 tabs every day until gone Albuterol inhaler 2 puffs every 4-6 hours as needed for cough Amlodipine 10mg 1 tab daily for high blood pressure Recheck in clinic in 7-10 days.
[2020-04-17 19:10] LABS: CHLORIDE,CL 97 mmol/L (98-107); SODIUM,NA 138 mmol/L (136-145)
[2020-04-17 19:11] LABS: ANION GAP 19.4 mmol/L (10-20)
[2020-04-17] MEDS: Take Home: predniSONE 20 MG, 2 Tab Pack PO ONE (19:33)
[2020-04-17] MEDS: Take Home: Doxycycline 100 MG Tab, 4 Tab Pack PO ONE (19:33)
[2020-04-17] MEDS: Take Home: Albuterol 18 GM Inhaler, 1 Inhaler Pack INH PRN (19:33)
[2020-04-17] MEDS: amLODIPine 10 MG Tab PO SCH (19:39)
[2020-04-17 19:40] VITALS: BP 158/95
--- NOTE | 2020-04-17 19:41 | CR ---
[id number] RAD/RAD Chest PA And Lateral EXAM: RAD Chest PA And Lateral INDICATION: COUGH COMPARISON: July 13, 2019. DISCUSSION: Cardiomediastinal silhouette is stable in size and contour. No infiltrate, effusion, pneumothorax, or edema. IMPRESSION: No acute cardiopulmonary abnormality. El Vivar DO 04/17/20 1940 Thank you for allowing us to participate in the care of your patient.
[2020-04-17 20:20] VITALS: PULSE 87
== END 2020-04-17 19:53 | disposition home or self-care (01) ==
LOC: VM.ED 17:47
DX: J44.1 Chronic obstructive pulmonary disease with (acute) exacerbation (principal); I10 Essential (primary) hypertension; Z79.899 Other long term (current) drug therapy; Z91.040 Latex allergy status
CPT/HCPCS: 71046; 80053; 81003; 81025; 83735; 84484; 85025; 85610; 86140; 87081; 87880-QW; 93005; 93010; 96374; 99284-GF; 99285-25; A9270-GY; J2930; J7512; J7620-GY; U0002

== ENCOUNTER 2023-09-12 11:41 | Emergency (ER) | payer MEDICAID ==
[2023-09-12 11:59] VITALS: BP 149/99; PULSE 96
== END 2023-09-12 12:16 | disposition home or self-care (01) ==
LOC: VM.ED 11:41
DX: Z76.0 Encounter for issue of repeat prescription (principal); I10 Essential (primary) hypertension; J44.9 Chronic obstructive pulmonary disease, unspecified; F17.210 Nicotine dependence, cigarettes, uncomplicated; Z91.040 Latex allergy status; Z79.899 Other long term (current) drug therapy
CPT/HCPCS: 99283

== ENCOUNTER 2023-11-01 20:23 | Emergency (ER) | payer MEDICAID ==
[2023-11-01 20:52] LABS: BASOPHILS PERCENT AUTO 0.2 % (0.2-1.2); EOSINOPHILS PERCENT AUTO 0.1 % (0.0-4.0); HEMATOCRIT 38.3 % (33.0-47.0); HEMOGLOBIN 13.2 g/dL (12.0-16.0); IMMATURE GRAN ABSOLUTE AUTO 0.01 x10^3/uL (0.00-0.07); LYMPHOCYTES PERCENT AUTO 37.2 % (25.0-50.0); MEAN CORPUSCULAR HEMOGLOBIN 32.1 pg (26.0-32.0); MEAN CORPUSCULAR HGB CONC 34.5 g/dL (32.0-36.0); MEAN CORPUSCULAR VOLUME 93.2 fL (78.0-93.0); MONOCYTES ABSOLUTE AUTO 0.7 x10^3/uL (0.0-0.8); NEUTROPHILS ABSOLUTE AUTO 4.4 x10^3/uL (1.8-7.7); NEUTROPHILS PERCENT AUTO 53.4 % (50.0-80.0); PLATELET COUNT,PLT 267 x10^3/uL (130-400); RED BLOOD CELL COUNT 4.11 x10^6/uL (4.00-5.50); WHITE BLOOD CELL COUNT,WBC 8.2 x10^3/uL (4.0-10.0)
[2023-11-01 21:06] LABS: A/G RATIO 0.98; ALANINE AMINOTRANSFERASE,ALT 56 U/L (14-59); ALBUMIN 4.1 g/dL (3.4-5.0); ALKALINE PHOSPHATASE 71 U/L (46-116); ANION GAP 18.7 mmol/L (5-15); ASPARTATE AMNIOTRANSFERASE,AST 49 U/L (15-37); BILIRUBIN TOTAL 0.6 mg/dL (0.2-1.0); BLOOD UREA NITROGEN,BUN 11 mg/dL (7-18); C-REACTIVE PROTEIN 0.59 mg/dL (<=0.50); CALCIUM 9.8 mg/dL (8.5-10.1); CARBON DIOXIDE,CO2 27 mmol/L (21-32); CHLORIDE,CL 97 mmol/L (98-107); CREATININE 1.3 mg/dL (0.55-1.02); ESTIMATED GFR 50 mL/min (>=60); GLUCOSE RANDOM 126 mg/dL (70-99); POTASSIUM,K 3.7 mmol/L (3.5-5.1); PROTEIN TOTAL,TP 8.3 g/dL (6.4-8.2); SODIUM,NA 139 mmol/L (136-145)
[2023-11-01 21:12] VITALS: PULSE 99
[2023-11-01 22:12] VITALS: BP 139/90
[2023-11-01] MEDS ORDERED: Take Home: Naproxen 500 MG Tab, 4 Tab Pack PO ONE (22:15)
[2023-11-01] MEDS ORDERED: Take Home: Cyclobenzaprine 10 MG Tab, 4 Tab Pack PO ONE (22:15)
== END 2023-11-01 22:31 | disposition home or self-care (01) ==
LOC: VM.ED 20:23
DX: R20.0 Anesthesia of skin (principal); M50.30 Other cervical disc degeneration, unspecified cervical region; Z91.040 Latex allergy status; Z79.899 Other long term (current) drug therapy; Z72.0 Tobacco use
CPT/HCPCS: 70450; 71046; 72125; 80053; 84484; 85025; 86140; 93005; 93010; 99284; 99285; A9270-GY

== ENCOUNTER 2024-09-27 09:12 | Emergency (ER) | payer MEDICAID ==
[2024-09-27 09:53] LABS: BASOPHILS PERCENT AUTO 0.2 % (0.2-1.2); EOSINOPHILS PERCENT AUTO 0.2 % (0.0-4.0); HEMATOCRIT 37.8 % (33.0-47.0); HEMOGLOBIN 12.8 g/dL (12.0-16.0); LYMPHOCYTES ABSOLUTE AUTO 2.3 x10^3/uL (1.0-4.8); LYMPHOCYTES PERCENT AUTO 37.6 % (25.0-50.0); MEAN CORPUSCULAR HEMOGLOBIN 30.7 pg (26.0-32.0); MEAN CORPUSCULAR HGB CONC 33.9 g/dL (32.0-36.0); MEAN CORPUSCULAR VOLUME 90.6 fL (78.0-93.0); MONOCYTES ABSOLUTE AUTO 0.5 x10^3/uL (0.0-0.8); MONOCYTES PERCENT AUTO 7.9 % (2.0-11.0); NEUTROPHILS ABSOLUTE AUTO 3.4 x10^3/uL (1.8-7.7); NEUTROPHILS PERCENT AUTO 54.1 % (50.0-80.0); PLATELET COUNT,PLT 289 x10^3/uL (130-400); RED BLOOD CELL COUNT 4.17 x10^6/uL (4.00-5.50); WHITE BLOOD CELL COUNT,WBC 6.2 x10^3/uL (4.0-10.0)
[2024-09-27 10:08] VITALS: BP 152/88; PULSE 82
[2024-09-27 10:13] LABS: A/G RATIO 0.88; ALANINE AMINOTRANSFERASE,ALT 24 U/L (14-59); ALBUMIN 3.7 g/dL (3.4-5.0); ALKALINE PHOSPHATASE 60 U/L (46-116); ASPARTATE AMNIOTRANSFERASE,AST 21 U/L (15-37); BILIRUBIN TOTAL 0.6 mg/dL (0.2-1.0); BLOOD UREA NITROGEN,BUN 17 mg/dL (7-18); CALCIUM 9.3 mg/dL (8.5-10.1); CARBON DIOXIDE,CO2 31 mmol/L (21-32); CHLORIDE,CL 100 mmol/L (98-107); CREATININE 0.8 mg/dL (0.55-1.02); EST CRCL DRUG DOSING (CG) 70.37 mL/min; GLUCOSE RANDOM 86 mg/dL (70-99); POTASSIUM,K 3.5 mmol/L (3.5-5.1); PROTEIN TOTAL,TP 7.9 g/dL (6.4-8.2); SODIUM,NA 140 mmol/L (136-145)
[2024-09-27 10:16] LABS: ANION GAP 12.5 mmol/L (5-15); ESTIMATED GFR 90 mL/min (>=60)
== END 2024-09-27 10:29 | disposition home or self-care (01) ==
LOC: VM.ED 09:12
DX: R07.89 Other chest pain (principal); I10 Essential (primary) hypertension; J44.9 Chronic obstructive pulmonary disease, unspecified; F17.210 Nicotine dependence, cigarettes, uncomplicated; Z79.899 Other long term (current) drug therapy; Z91.040 Latex allergy status
CPT/HCPCS: 36415; 80053; 84484; 85025; 93005; 93010; 99284; 99285

== ENCOUNTER 2024-11-30 12:28 | Emergency (ER) | payer MEDICAID ==
[2024-11-30 13:08] LABS: AMPHETAMINE, URINE NEGATIVE (NEGATIVE); BARBITUATES,URINE NEGATIVE (NEGATIVE); BENZODIAZEPINES,URINE NEGATIVE (NEGATIVE); BUPRENORPHINE,URINE NEGATIVE (NEGATIVE); COCAINE,URINE NEGATIVE (NEGATIVE); MARIJUANA,URINE NEGATIVE (NEGATIVE); METHADONE,URINE NEGATIVE (NEGATIVE); METHAMPHETAMINE,URINE NEGATIVE (NEGATIVE); METHYLENEDIOXYMETHAMP,UR NEGATIVE (NEGATIVE); OPIATES,URINE NEGATIVE (NEGATIVE); OXYCODONE,URINE NEGATIVE (NEGATIVE); PHENCYCLIDINE,URINE NEGATIVE
[2024-11-30 13:25] VITALS: BP 179/102; PULSE 89
== END 2024-11-30 13:23 | disposition home or self-care (01) ==
LOC: VM.ED 12:28
DX: Z77.098 Contact with and (suspected) exposure to other hazardous, chiefly nonmedicinal, chemicals (principal); I10 Essential (primary) hypertension; J44.9 Chronic obstructive pulmonary disease, unspecified; Z79.899 Other long term (current) drug therapy; Z91.040 Latex allergy status
CPT/HCPCS: 80305-QW; 99283

== ENCOUNTER 2025-10-06 12:27 | Emergency (ER) | payer MEDICAID ==
[2025-10-06 13:05] VITALS: BP 188/85; PULSE 90
== END 2025-10-06 13:10 | disposition left against medical advice (07) ==
LOC: VM.ED 12:27
DX: Z53.21 Procedure and treatment not carried out due to patient leaving prior to being seen by health care provider (principal)

== ENCOUNTER 2025-10-13 13:25 | Emergency (ER) | payer MEDICAID ==
[2025-10-13 13:56] VITALS: BP 162/89; PULSE 82
[2025-10-13 13:58] LABS: AMPHETAMINES SCREEN, URINE NEGATIVE (NEGATIVE)
[2025-10-13 13:59] LABS: BUPRENORPHINE SCREEN,URINE NEGATIVE (NEGATIVE); COCAINE METABOLITES,URINE NEGATIVE (NEGATIVE); METHADONE SCREEN, URINE NEGATIVE (NEGATIVE); METHAMPHETAMINE SCREEN, URINE NEGATIVE (NEGATIVE); OXYCODONE SCREEN,URINE NEGATIVE (NEGATIVE); PCP SCREEN,URINE NEGATIVE (NEGATIVE); THC SCREEN,URINE 50 NG/ML NEGATIVE (NEGATIVE)
== END 2025-10-13 14:22 | disposition home or self-care (01) ==
LOC: VM.ED 13:25
DX: R20.0 Anesthesia of skin (principal); I10 Essential (primary) hypertension; J44.89 Other specified chronic obstructive pulmonary disease; Z91.040 Latex allergy status; Z79.899 Other long term (current) drug therapy
CPT/HCPCS: 80305-QW; 99283; 99284

== ENCOUNTER 2025-11-02 21:42 | Emergency (ER) | payer MEDICAID ==
[2025-11-02 22:20] VITALS: PULSE 73
[2025-11-02 22:41] LABS: BASOPHILS ABSOLUTE AUTO 0.0 x10^3/uL (0.0-0.2); BASOPHILS PERCENT AUTO 0.2 % (0.2-1.2); EOSINOPHILS ABSOLUTE AUTO 0.1 x10^3/uL (0.0-0.5); EOSINOPHILS PERCENT AUTO 1.4 % (0.0-4.0); IMMATURE GRAN ABSOLUTE AUTO 0.00 x10^3/uL (0.00-0.07); IMMATURE GRAN PERCENT AUTO 0.00 % (0.00-0.43); LYMPHOCYTES ABSOLUTE AUTO 3.5 x10^3/uL (1.0-4.8); LYMPHOCYTES PERCENT AUTO 54.9 % (25.0-50.0); MONOCYTES ABSOLUTE AUTO 0.6 x10^3/uL (0.0-0.8); MONOCYTES PERCENT AUTO 8.9 % (2.0-11.0); NEUTROPHILS ABSOLUTE AUTO 2.2 x10^3/uL (1.8-7.7); NEUTROPHILS PERCENT AUTO 34.6 % (50.0-80.0); PLATELET COUNT,PLT 220 x10^3/uL (130-400); RED BLOOD CELL COUNT 3.53 x10^6/uL (4.00-5.50); WHITE BLOOD CELL COUNT,WBC 6.3 x10^3/uL (4.0-10.0)
[2025-11-02 22:43] LABS: APPEARANCE,URINE CLEAR (CLEAR); GLUCOSE,URINE NEGATIVE (NEGATIVE); OCCULT BLOOD,URINE NEGATIVE (NEGATIVE)
[2025-11-02 22:54] LABS: AMPHETAMINES SCREEN, URINE NEGATIVE (NEGATIVE)
[2025-11-02 22:55] LABS: BUPRENORPHINE SCREEN,URINE NEGATIVE (NEGATIVE); COCAINE METABOLITES,URINE NEGATIVE (NEGATIVE); METHADONE SCREEN, URINE NEGATIVE (NEGATIVE); METHAMPHETAMINE SCREEN, URINE NEGATIVE (NEGATIVE); OXYCODONE SCREEN,URINE NEGATIVE (NEGATIVE); PCP SCREEN,URINE NEGATIVE (NEGATIVE); THC SCREEN,URINE 50 NG/ML NEGATIVE (NEGATIVE)
[2025-11-02 22:58] LABS: SQUAMOUS EPITHELIAL CELLS,UR FEW /HPF (NOT SEEN)
[2025-11-02 23:03] LABS: A/G RATIO 0.77; ALANINE AMINOTRANSFERASE,ALT 25.0 U/L (14-59); ASPARTATE AMNIOTRANSFERASE,AST 21.0 U/L (15-37); BILIRUBIN TOTAL 0.2 mg/dL (0.2-1.0); BLOOD UREA NITROGEN,BUN 12.0 mg/dL (7-18); CARBON DIOXIDE,CO2 27.0 mmol/L (21-32); CHLORIDE,CL 104.0 mmol/L (98-107); CREATININE 0.5 mg/dL (0.55-1.02); EST CRCL DRUG DOSING (CG) 110.11 mL/min; ETHANOL BLOOD MEDICAL 14.0 mg/dL (0-3); GLUCOSE RANDOM 116.0 mg/dL (70-99); POTASSIUM,K 3.3 mmol/L (3.5-5.1); PROTEIN TOTAL,TP 6.9 g/dL (6.4-8.2); SODIUM,NA 141.0 mmol/L (136-145)
[2025-11-02 23:05] LABS: ESTIMATED GFR 113.0 mL/min (>=60)
[2025-11-02 23:56] VITALS: BP 138/83
== END 2025-11-03 00:40 ==
LOC: VM.ED 21:42 → SUPCPDRO 21:42 → VM.ED 11-03 00:40
DX: F22 Delusional disorders (principal); I10 Essential (primary) hypertension; J44.89 Other specified chronic obstructive pulmonary disease; Z91.040 Latex allergy status; Z79.899 Other long term (current) drug therapy
CPT/HCPCS: 36415; 80053; 80143; 80179; 80305-QW; 80307; 81001; 81025; 85025; 99284